=== PATIENT | male | born 1955 | race Two or more races ===

== ENCOUNTER 2024-08-09 18:44 | Inpatient (IN) | payer MEDICARE ==
[~2024-08-09] VITALS: Ht 170.2 cm; Wt 113.4 kg
[2024-08-09] MEDS ORDERED: ACETAMINOPHEN ES 500 MG TABLET ONE (19:12)
[2024-08-09] MEDS: IV NS 0.9% 1,000 ML BAG IV ONE (19:15)
[2024-08-09] MEDS: ACETAMINOPHEN ES 500 MG TABLET PO ONE ×2 (19:19→19:20)
[2024-08-09 19:34] LABS: BASOPHILS % (AUTO) 0.2 % (0.0-2.0); EOSINOPHILS % (AUTO) 0.2 % (0.0-6.0); HEMATOCRIT 43 % (39-51); HEMOGLOBIN 14.7 g/dL (13.5-17.5); LYMPHOCYTES # (AUTO) 0.6 K/uL (0.8-4.8); MEAN CORPUSCULAR HEMOGLOBIN 32 PG (26.0-33.0); MEAN CORPUSCULAR HGB CONC 35 g/dl (31.0-36.0); MEAN CORPUSCULAR VOLUME 94 fL (80-96); MONOCYTES # (AUTO) 0.6 K/uL (0.1-1.30); MONOCYTES % (AUTO) 7.7 % (2.0-12.0); NEUTROPHILS # (AUTO) 7.2 K/uL (1.8-8.9); NEUTROPHILS % (AUTO) 84.9 % (43.0-81.0); PLATELET COUNT (AUTO) 178 K/uL (150-450); RED BLOOD CELL COUNT(AUTO) 4.54 MIL/uL (4.5-6.0); RED CELL DISTRIBUTION WIDTH 12.7 % (11.5-15.0); WHITE BLOOD COUNT (AUTO) 8.4 K/uL (4.3-11.0)
[2024-08-09 19:43] LABS: CARBON DIOXIDE 30 mmol/L (21-32); CHLORIDE 102 mmol/L (98-107); GLUCOSE 157 mg/dL (74-106); POTASSIUM 4.1 mmol/L (3.5-5.1); SODIUM SERUM 137 mmol/L (136-145); UREA NITROGEN, BLOOD 17 mg/dL (7-18)
[2024-08-09 19:44] LABS: INR 1.17 (0.91-1.10); PARTIAL THROMBOPLASTIN TIME 27.6 SEC (24.3-34.3); PROTHROMBIN TIME 11.9 SECS (9.2-11.1)
[2024-08-09 19:49] LABS: ALANINE AMINOTRANSFERASE 28 U/L (12-78); ALBUMIN 3.9 g/dL (3.4-5.0); ALKALINE PHOSPHATASE 59 U/L (46-116); ASPARTATE AMINOTRANSFERASE 18 U/L (15-37); BILIRUBIN,DIRECT 0.2 mg/dL (0.0-0.2); BILIRUBIN,TOTAL 1.2 mg/dL (0.2-1.0); TOTAL PROTEIN, SERUM 7.3 g/dL (6.4-8.2)
[2024-08-09 19:53] LABS: LACTIC ACID 2.5 mmol/L (0.4-2.0)
[2024-08-09] MEDS ORDERED: DILTIAZEM HCL 25 MG IV ONE (20:21)
[2024-08-09] MEDS: DILTIAZEM HCL 50 MG IV IV ONE (20:27)
[2024-08-09] MEDS ORDERED: PIPERACI/TAZO 3.375GM/D5W 50ML PB IV ONE (20:32)
[2024-08-09] MEDS: PIPERACILLIN /TAZOBACTAM 3.375 G in IV D5W 50 ML IV ONE (20:35)
[2024-08-09] MEDS ORDERED: ONDANSETRON HCL/PF 4 MG/2 ML VIAL IVP PRN (21:00)
[2024-08-09] MEDS ORDERED: ACETAMINOPHEN 325 MG TABLET PO PRN (21:00)
[2024-08-09] MEDS ORDERED: MAGNESIUM HYDROXIDE 30 ML UDC PO PRN (21:00)
[2024-08-09 21:34] VITALS: BP 155/85; TEMP 100.6; O2SAT 94
[2024-08-09] MEDS: VANCOMYCIN 1 GM /D5W 250 ML PB IV ONE (22:38)
[2024-08-09] MEDS: VANCOMYCIN 1 GM in IV D5W 250ml IV ONE (22:56)
[2024-08-10] VITALS: BP 131/81; TEMP 99.1; O2SAT 96
[2024-08-10] MEDS ORDERED: PIPERACILLIN /TAZOBACTAM 3.375 G in IV D5W 50 ML IV SCH
[2024-08-10] MEDS: AMIODARONE 150 MG in IV D5W 100 ML IV ONE (02:09)
[2024-08-10] MEDS: AMIODARONE 150 MG/3 ML VIAL IV ONE ×2 (02:23)
[2024-08-10] MEDS: PIPERACILLIN /TAZOBACTAM 3.375 G in IV D5W 50 ML IV ONE (02:28)
[2024-08-10] MEDS: PIPERACI/TAZO 3.375GM/D5W 50ML PB IV ONE (02:31)
[2024-08-10] MEDS: AMIODARONE 450 MG in IV D5W 241 ML IV PRN (03:00)
[2024-08-10 04:00] VITALS: BP 150/97; TEMP 99; O2SAT 96
[2024-08-10 04:28] LABS: BASOPHILS # (AUTO) 0.1 K/uL (0.0-0.2); BASOPHILS % (AUTO) 0.9 % (0.0-2.0); EOSINOPHILS % (AUTO) 0.1 % (0.0-6.0); HEMATOCRIT 41 % (39-51); HEMOGLOBIN 13.8 g/dL (13.5-17.5); LYMPHOCYTES # (AUTO) 0.5 K/uL (0.8-4.8); LYMPHOCYTES % (AUTO) 4.8 % (20.0-44.0); MEAN CORPUSCULAR HEMOGLOBIN 32 PG (26.0-33.0); MEAN CORPUSCULAR HGB CONC 34 g/dl (31.0-36.0); MEAN CORPUSCULAR VOLUME 93 fL (80-96); MONOCYTES # (AUTO) 0.7 K/uL (0.1-1.30); MONOCYTES % (AUTO) 7.4 % (2.0-12.0); NEUTROPHILS # (AUTO) 8.8 K/uL (1.8-8.9); NEUTROPHILS % (AUTO) 86.8 % (43.0-81.0); PLATELET COUNT (AUTO) 146 K/uL (150-450); RED BLOOD CELL COUNT(AUTO) 4.37 MIL/uL (4.5-6.0); RED CELL DISTRIBUTION WIDTH 12.6 % (11.5-15.0); WHITE BLOOD COUNT (AUTO) 10.2 K/uL (4.3-11.0)
[2024-08-10] MEDS ORDERED: NITROGLYCERIN 0.4 MG/TAB BOTTLE SL PRN (04:30)
[2024-08-10] MEDS: MAG HYDROX/AL HYDROX/SIMETH 30 ML UDC PO PRN (04:42)
[2024-08-10 04:45] LABS: CREATININE 0.9 mg/dL (0.6-1.3); MAGNESIUM 1.3 mg/dL (1.8-2.4); PHOSPHORUS 2.5 mg/dL (2.5-4.9)
[2024-08-10 04:46] LABS: CALCIUM, SERUM 8.3 mg/dL (8.5-10.1)
[2024-08-10 05:08] LABS: THYROID STIMULATING HORMONE 0.21 uIU/mL (0.358-3.74)
[2024-08-10 08:00] VITALS: BP 149/95; TEMP 99.2; O2SAT 96
[2024-08-10] MEDS: VANCOMYCIN HCL 1.25 GM in IV D5W 250 ML IV SCH (08:35)
[2024-08-10] MEDS: PANTOPRAZOLE 40 MG VIAL IV SCH (08:36)
[2024-08-10] MEDS: APIXABAN 5 MG TABLET PO SCH (09:37)
[2024-08-10] MEDS: Magnesium 1GM/D5W 100ML PREMIX 100 ML IV SCH (09:37)
[2024-08-10 10:12] LABS: CHOLESTEROL 185 mg/dL (<200); HDL CHOLESTEROL 57 mg/dL (40-60); LDL 121 mg/dL (0-99); TRIGLYCERIDES 106 mg/dL (30-150)
[2024-08-10] MEDS: ZOSYN IVPB 3.375 G in IV D5W 50ml IV SCH (11:10)
[2024-08-10 12:00] VITALS: BP 130/84; TEMP 98.4; O2SAT 97
[2024-08-10 16:00] VITALS: BP 128/90; TEMP 99.2; O2SAT 98
[2024-08-10 20:00] VITALS: BP 130/97; TEMP 98.6; O2SAT 98
[2024-08-11] VITALS (7 sets, daily range): BP systolic 111–148; BP diastolic 78–98; TEMP 98–98.6; O2SAT 95–99
[2024-08-11 00:28] LABS: APPEARANCE,URINE CLEAR (CLEAR); BILIRUBIN,URINE NEGATIVE (NEGATIVE); BLOOD, URINE NEGATIVE Ery/uL (NEGATIVE); COLOR,URINE YELLOW (YELLOW); KETONES,URINE NEGATIVE (NEGATIVE); LEUKOCYTE ESTERASE ,URINE NEGATIVE (NEGATIVE); NITRITE, URINE NEGATIVE (NEGATIVE); PROTEIN,URINE NEGATIVE (NEGATIVE); UGLUCOSE NEGATIVE (NEGATIVE); UROBILINOGEN,URINE 0.2 EU/dL (0.2)
[2024-08-11 07:51] LABS: BASOPHILS % (AUTO) 0.4 % (0.0-2.0); EOSINOPHILS # (AUTO) 0.1 K/uL (0.0-0.7); HEMATOCRIT 41 % (39-51); HEMOGLOBIN 13.9 g/dL (13.5-17.5); LYMPHOCYTES # (AUTO) 1.1 K/uL (0.8-4.8); MEAN CORPUSCULAR HEMOGLOBIN 32 PG (26.0-33.0); MEAN CORPUSCULAR HGB CONC 34 g/dl (31.0-36.0); MEAN CORPUSCULAR VOLUME 93 fL (80-96); MONOCYTES # (AUTO) 0.6 K/uL (0.1-1.30); MONOCYTES % (AUTO) 11.6 % (2.0-12.0); NEUTROPHILS # (AUTO) 3.6 K/uL (1.8-8.9); PLATELET COUNT (AUTO) 145 K/uL (150-450); RED BLOOD CELL COUNT(AUTO) 4.41 MIL/uL (4.5-6.0); RED CELL DISTRIBUTION WIDTH 12.4 % (11.5-15.0); WHITE BLOOD COUNT (AUTO) 5.5 K/uL (4.3-11.0)
[2024-08-11 08:10] LABS: ALBUMIN 3.2 g/dL (3.4-5.0); BILIRUBIN,TOTAL 0.9 mg/dL (0.2-1.0); CALCIUM, SERUM 9.2 mg/dL (8.5-10.1); CREATININE 0.7 mg/dL (0.6-1.3); MAGNESIUM 1.9 mg/dL (1.8-2.4); PHOSPHORUS 2.8 mg/dL (2.5-4.9); POTASSIUM 3.9 mmol/L (3.5-5.1)
[2024-08-11 14:05] LABS: HIV-1 p24 ANTIGEN NON REACTIVE (NONREACTIVE); HIV-1/2 ANTIBODY NON REACTIVE (NONREACTIVE)
[2024-08-11] MEDS: VANCOMYCIN 1 GM in IV D5W 250ml IV SCH (20:32)
[2024-08-11] MEDS: VANCOMYCIN 750 MG in IV D5W 250 ML IV SCH (21:48)
[2024-08-12] VITALS: BP 126/89; TEMP 98.3; O2SAT 98
[2024-08-12 04:00] VITALS: BP 127/87; TEMP 98.5; O2SAT 97
[2024-08-12 07:03] LABS: CALCIUM, SERUM 9.9 mg/dL (8.5-10.1); CREATININE 0.8 mg/dL (0.6-1.3); POTASSIUM 4.8 mmol/L (3.5-5.1)
[2024-08-12 08:00] VITALS: BP 116/96; TEMP 97.8; O2SAT 97
[2024-08-12] MEDS: DILTIAZEM HCL CD 240 MG PO SCH (09:38)
[2024-08-12] MEDS ORDERED: AMPICILLIN 2 GM in IV NS 0.9% 50 ML IV SCH (11:00)
[2024-08-12] MEDS: CEFTRIAXONE 2 G in IV D5W 100 ML IV SCH (11:55)
[2024-08-12 12:00] VITALS: BP 127/93; TEMP 98.3; O2SAT 99
[2024-08-12] MEDS: AMPICILLIN SODIUM 2 GM in IV NS 0.9% 100 ML IV SCH (12:35)
[2024-08-12 16:00] VITALS: BP 121/89; TEMP 97.8; O2SAT 95
[2024-08-12 20:00] VITALS: BP 148/93; TEMP 97.5; O2SAT 96
[2024-08-13] VITALS: BP 122/76; TEMP 98.1; O2SAT 96
[2024-08-13 04:00] VITALS: BP 110/82; TEMP 98.1; O2SAT 96
[2024-08-13 07:15] LABS: BASOPHILS % (AUTO) 0.3 % (0.0-2.0); EOSINOPHILS # (AUTO) 0.1 K/uL (0.0-0.7); EOSINOPHILS % (AUTO) 1.9 % (0.0-6.0); HEMATOCRIT 40 % (39-51); HEMOGLOBIN 13.8 g/dL (13.5-17.5); LYMPHOCYTES # (AUTO) 1.2 K/uL (0.8-4.8); MEAN CORPUSCULAR HEMOGLOBIN 32 PG (26.0-33.0); MEAN CORPUSCULAR HGB CONC 35 g/dl (31.0-36.0); MEAN CORPUSCULAR VOLUME 92 fL (80-96); MONOCYTES # (AUTO) 0.6 K/uL (0.1-1.30); MONOCYTES % (AUTO) 11.5 % (2.0-12.0); NEUTROPHILS % (AUTO) 62.3 % (43.0-81.0); PLATELET COUNT (AUTO) 170 K/uL (150-450); RED BLOOD CELL COUNT(AUTO) 4.35 MIL/uL (4.5-6.0); RED CELL DISTRIBUTION WIDTH 12.1 % (11.5-15.0); WHITE BLOOD COUNT (AUTO) 4.9 K/uL (4.3-11.0)
[2024-08-13 07:42] LABS: CALCIUM, SERUM 9.5 mg/dL (8.5-10.1); CREATININE 0.8 mg/dL (0.6-1.3); MAGNESIUM 1.8 mg/dL (1.8-2.4); PHOSPHORUS 4.3 mg/dL (2.5-4.9)
[2024-08-13 08:00] VITALS: BP 124/80; TEMP 98.4; O2SAT 96
[2024-08-13 16:00] VITALS: BP 124/90; TEMP 98.6; O2SAT 96
[2024-08-13 20:00] VITALS: BP 140/100; TEMP 98.1; O2SAT 95
[2024-08-14] VITALS: BP 140/100; TEMP 98.1; O2SAT 95
[2024-08-14 04:00] VITALS: BP 118/90; TEMP 97.7; O2SAT 94
[2024-08-14 08:00] VITALS: BP 125/84; TEMP 98.2; O2SAT 95
[2024-08-14 09:34] LABS: CALCIUM, SERUM 9.1 mg/dL (8.5-10.1); CREATININE 0.8 mg/dL (0.6-1.3)
[2024-08-14 22:00] VITALS: BP 154/98; TEMP 98.4; O2SAT 95
[2024-08-15 06:33] LABS: CALCIUM, SERUM 9.8 mg/dL (8.5-10.1); POTASSIUM 4.8 mmol/L (3.5-5.1)
[2024-08-15 08:00] VITALS: BP 115/91; TEMP 98; TEMP 98.4; O2SAT 94
[2024-08-15 10:00] VITALS: BP 115/91; TEMP 98.4; O2SAT 94
== END 2024-08-15 13:27 | disposition left against medical advice (07) | DRG 314 ==
LOC: ER 18:46 → TELE1 21:17 → TELE-TD 21:39 → TELE1 08-10 10:44 → MEDSG1 08-13 09:57
PROVIDERS: ATTEND Nurse Practitioner Family
DX: T82.7XXA Infection and inflammatory reaction due to other cardiac and vascular devices, implants and grafts, initial encounter (principal); A41.81 Sepsis due to Enterococcus; E87.20 Acidosis, unspecified; I38 Endocarditis, valve unspecified; I10 Essential (primary) hypertension; Z79.01 Long term (current) use of anticoagulants; I48.91 Unspecified atrial fibrillation; Z20.822 Contact with and (suspected) exposure to COVID-19; Z95.0 Presence of cardiac pacemaker; Y83.8 Other surgical procedures as the cause of abnormal reaction of the patient, or of later complication, without mention of misadventure at the time of the procedure; Y92.009 Unspecified place in unspecified non-institutional (private) residence as the place of occurrence of the external cause
CPT/HCPCS: 36415; 71045-TC; 80048-TC; 80053-TC; 80061-TC; 80076-TC; 80202-TC; 83605-TC; 83735-TC; 84100-TC; 84439-TC; 84443-TC; 84484-TC; 85025-TC; 85730-TC; 86803; 87040-TC; 87086-TC; 87186-TC; 87806; 93307-TC; A4223; G0378; G0480; J0282; J0290; J0696; J2470; J2543; J3370; J3371; J3475; J3490; J7030; J7050; J7060